=== PATIENT | female | born 1960 | race Asian ===

== ENCOUNTER 2023-07-02 07:17 | Day surgery (SDC) | payer MEDICARE, OTHER ==
[~2023-07-02] VITALS: Ht 156 cm; Wt 50.0 kg
[2023-07-02] MEDS ORDERED: SIMETHICONE 40 MG/0.6 ML ML ONE (07:42)
[2023-07-02] MEDS ORDERED: MEPERIDINE 100 MG INJ. 100 MG/ML VIAL ONE (07:43)
[2023-07-02] MEDS ORDERED: MIDAZOLAM HCL 5 MG/5 ML VIAL ONE (07:43)
[2023-07-02 08:03] VITALS: O2SAT 100
[2023-07-02 14:09] VITALS: BP_SYST 102; PULSE 69; RESP 15
== END 2023-07-02 11:46 | disposition home or self-care (01) ==
LOC: SDS 07:17 → SMU 07:18 → SDS 11:46
PROVIDERS: ATTEND Student in an Organized Health Care Education/Training Program
DX: Z12.11 Encounter for screening for malignant neoplasm of colon (principal); K64.8 Other hemorrhoids
CPT/HCPCS: 45378; 99152; 99153; G0378; J2250; J2175